=== PATIENT | female | born 1960 | race Caucasian/White ===

== ENCOUNTER 2017-06-22 03:00 | Inpatient (IN) | payer MEDICAID ==
[~2017-06-22] VITALS: Ht 167.6 cm; Wt 74.8 kg
--- NOTE | 2017-06-22 03:06 | NUR ---
PT BIBA AND [place] [facility] BLS. TAKEN TO BED 3
[2017-06-22 03:09] VITALS: BP 137/81
--- NOTE | 2017-06-22 03:09 | NUR ---
PATIENT BIBA W/C/O NECK PAIN. PT FOUND BY TARA MONTERROSO AMBULATING ON THE STREET. PATIENT AWAKE, ALERT, AMBULATORY. TARA MONTERROSO ON BEDSIDE . PT STATES HER NECK HURTS BUT DENIES ANY INJURIES . ETOH, DENIES N/V/D; SKIN IS PINK/WARM/DRY; AAOX4 WITH EVEN AND STEADY GAIT; LUNGS CLEAR BL; HR EVEN AND REGULAR; PT DENIES ANY FEVER, CP, SOB, OR COUGH AT THIS TIME; PATIENT STATES PAIN OF 10/10 AT THIS TIME; VSS; PATIENT POSITIONED FOR COMFORT; HOB ELEVATED; BEDRAILS UP X2; BED DOWN.PLACE ON 5150 BY TARA MONTERROSO D/T GRAVELY DISABLE. AMARA RIVERA MADE AWARE OF PT STATUS.
--- NOTE | 2017-06-22 03:19 | NUR ---
LAB AT BEDSIDE
--- NOTE | 2017-06-22 03:20 | NUR ---
PT AMB WITH ASST TO [facility]. UA SENT TO LAB.
--- NOTE | 2017-06-22 03:29 | NUR ---
MC/PD AT BEDSIDE, PT PLACED ON A 5150 FOR GRAVELY DISABLED
--- NOTE | 2017-06-22 03:33 | NUR ---
XRAY AT BEDSIDE
--- NOTE | 2017-06-22 03:34 | NUR ---
Dr. Chaudhari evaluating patient at bedside.
[2017-06-22 03:38] LABS: HEMATOCRIT 30.7 % (36-48); HEMOGLOBIN 9.6 g/dL (12.0-16.0); MEAN CORPUSCULAR HEMOGLOBIN 23 pg (27-31); MEAN CORPUSCULAR HGB CONC 31 g/dL (33-37); MEAN CORPUSCULAR VOLUME 74 fL (80-94); PLATELET COUNT (AUTO) 178 K/uL (140-450); RED BLOOD CELL COUNT(AUTO) 4.14 MIL/uL (4.20-5.40); RED CELL DISTRIBUTION WIDTH 21.3 % (11.6-13.7); WHITE BLOOD COUNT (AUTO) 5.6 K/uL (4.8-10.8)
[2017-06-22 03:38] LABS: AMPHETAMINE, URINE NEG. ng/ml (NEG <=1000); BARBITURATE, URINE NEG. ng/ml (NEG <=200); BENZODIAZEPINE, URINE NEG. ng/mL (NEG <=200); CANNABINOID, URINE NEG. ng/mL (NEG <=50); COCAINE, URINE NEG. ng/mL (NEG <=300); OPIATE, URINE NEG. ng/mL (NEG <=2000); PHENCYCLIDINE SCREEN,URINE NEG. ng/mL (NEG <=25)
[2017-06-22 03:39] LABS: ANION GAP 8.9 (8-16); CARBON DIOXIDE 30.9 mmol/L (21-32); CHLORIDE 108 mmol/L (98-107); CREATININE 0.6 mg/dL (0.6-1.3); GFR ARICAN-AMERICAN 132 mL/min (>90); GFR NON ARICAN-AMERICAN 109 mL/min (>90); GLUCOSE 92 mg/dL (74-106); POTASSIUM 3.8 mmol/L (3.5-5.1); SODIUM SERUM 144 mmol/L (136-145); UREA NITROGEN, BLOOD 6 mg/dL (7-18)
[2017-06-22 03:42] LABS: EOSINOPHILS % (MANUAL) 2 % (0-4); LYMPHOCYTES % (MANUAL) 30 % (20-46); MONOCYTES % (MANUAL) 10 % (5-12); NEUTROPHILS % (MANUAL) 58 (43-65)
[2017-06-22 03:43] LABS: ANISOCYTOSIS 1+
[2017-06-22 03:47] LABS: ALANINE AMINOTRANSFERASE 29 U/L (14-59); ALBUMIN 3.1 g/dL (3.4-5.0); ALCOHOL, BLOOD 210 mg/dL (<3); ALKALINE PHOSPHATASE 113 U/L (46-116); ASPARTATE AMINOTRANSFERASE 30 U/L (15-37); TOTAL BILIRUBIN 0.3 mg/dL (0.0-1.0)
[2017-06-22 03:52] LABS: ACETAMINOPHEN < 0.5 ug/ml (10-30); SALICYLATE < 2.8 mg/dL (2.8-20.0)
--- NOTE | 2017-06-22 04:04 | NUR ---
PT SLEEPING , ON PRODUCTION SUPPORT SUPERVISOR , VSS. WILL CONT TO MONITOR.
[2017-06-22] MEDS ORDERED: NACL 0.9% 1,000 ML IV ONE (04:05)
[2017-06-22] MEDS ORDERED: MULTIVITAMIN-12 10 ML, THIAMINE 100 MG, MAGNESIUM SULFATE 50% 2,000 MG, FOLIC ACID 5 MG... IV ONE ×5 (04:05)
[2017-06-22] MEDS ORDERED: MULTIVITAMIN-12 10 ML VIAL IV ONE (04:28)
[2017-06-22] MEDS ORDERED: MAGNESIUM SULFATE 50% 1000 MG/2 ML VIAL IV ONE (04:28)
[2017-06-22] MEDS ORDERED: THIAMINE 200 MG/2 ML VIAL ONE (04:28)
[2017-06-22] MEDS ORDERED: FOLIC ACID 5 MG/ML SYR ONE (04:28)
--- NOTE | 2017-06-22 05:04 | NUR ---
PT CONTINUES ASLEEP, VSS, CURRENTLY RECEIVING IV FLUIDS. NO S/S OF DISTRESS NOTED UP TO THIS POINT. WILL CONT TO MONITOR.
--- NOTE | 2017-06-22 06:05 | NUR ---
PT SLEEPING IN A COMFORTABLE POSITION, VS REMAIN STABLE, CONTINUES IN IV FLUIDS. NO DISTRESS NOTED AT THE MOMENT.
--- NOTE | 2017-06-22 07:15 | NUR ---
Pt report given to AUSTYN RIVERS. Transfer of care at this time.
--- NOTE | 2017-06-22 07:25 | NUR ---
PT SLEEPING BUT AROUSABLE;ALL MONITORS IN PLACED;NO ACUTE DISTRESS NOTED;WILL CONTINUE TO MONITOR PT.
--- NOTE | 2017-06-22 07:39 | NUR ---
PT WENT TO RESTROOM ACCOMPANIED BY CHARGE NURSE;PT STATES "I'M ON ONE ON ONE "I DON'T WANNA HURT MYSELF".WILL CONTINUE TO MONITOR PT.
--- NOTE | 2017-06-22 07:50 | NUR ---
PT EATING HER BREAKFAST;TALKING TO CHARGE NURSE CHYNA.
--- NOTE | 2017-06-22 08:19 | NUR ---
PT C/O ITCHINESS IN HER PRIVATE AREA;PER CHARGE NURSE SHE WAS DX WITH CHLAMYDIA AND PT DIDN'T TOOK HER MEDICINE; DR RENE NOTIFIED;
--- NOTE | 2017-06-22 09:02 | NUR ---
PT SLEEPING;ALL MONITORS IN PLACED;DARI MACARIO DISTRESS NOTED;WILL CONTINUE TO MONITOR PT.
--- NOTE | 2017-06-22 09:43 | NUR ---
PER TOÑITO NURSE PT IS MEDICALLY CLEARED;EMT MONITOR CALLED DR SHERIDAN.
--- NOTE | 2017-06-22 10:00 | NUR ---
PT C/O OF ITCHING AND NECK PAIN;ER MD NOTIFIED.
[2017-06-22] MEDS ORDERED: KETOROLAC 30 MG/ML VIAL IVP ONE (10:15)
--- NOTE | 2017-06-22 10:21 | NUR ---
PT REMOVED ALL THE MONITORS;PT STATES IT ANNOYS ME;PT BECOMES AGITATED;
--- NOTE | 2017-06-22 10:25 | NUR ---
PT REFUSES TO TAKE HER VS.WILL CONTINUE TO MONITOR PT.
--- NOTE | 2017-06-22 10:55 | NUR ---
pt keeps talking and laughing;no acut distress noted;will continue to monitor pt.
[2017-06-22] MEDS ORDERED: ONDANSETRON 4 MG/2 ML VIAL IVP PRN (11:05)
[2017-06-22] MEDS ORDERED: ACETAMINOPHEN 325 MG TAB PO PRN (11:05)
[2017-06-22] MEDS ORDERED: LORazepam 2 MG/ML VIAL IVP PRN (11:10)
--- NOTE | 2017-06-22 11:21 | NUR ---
junior technical writer at bedside for CXR.
--- NOTE | 2017-06-22 11:23 | NUR ---
XRAY AT BEDSIDE.
--- NOTE | 2017-06-22 11:42 | NUR ---
Patient will be admitted to care of DR SHERIDAN; Admited to TELE. Will go to room 119 B. Belongings list completed. Report to AUSTYN CUBA.
[2017-06-22 11:58] LABS: PROTHROMBIN TIME 9.7 secs (10.8-13.4)
--- NOTE | 2017-06-22 11:58 | NUR ---
RECEIVED REPORT FROM SILVESTRE IN ER. PATIENT AWAKE AND ALERT, NO SIGNS OF ACUTE DISTRESS. BOWEL SOUNDS ACTIVE IN ALL 4 QUADRANTS. BOWEL AND BLADDER CONTINENCE. SKIN INTACT. AMBULATORY WITH [facility]. PATIENT DENIES PAIN AT THIS TIME. PATIENT VITAL SIGNS ARE BLOOD PRESSURE 157/92, PULSE 81, OXYGEN SATURATION 100%, RESPIRATIONS 18 AND TEMPERATURE 98.1. ORIENTED TO HOSPITAL AND TO UNIT, PATIENT VERBALIZES UNDERSTANDING. 1:[address] BED IN LOW POSITION WITH BILATERAL HALF SIDE RAILS UP, ENVIRONMENTAL SAFETY CHECKS IN PLACE. WILL CONTINUE TO MONITOR.
[2017-06-22 12:00] VITALS: BP 154/92
[2017-06-22 12:08] LABS: CHOL/HDL RATIO 1.6 (1-4.5); FREE T4 (FREE THYROXINE) 0.95 ng/dL (0.76-1.46); MAGNESIUM 2.2 mg/dL (1.8-2.4); PHOSPHORUS 3.8 mg/dL (2.5-4.9); THYROID STIMULATING HORMONE 1.1 uIU/mL (0.34-3.74)
[2017-06-22] MEDS: QUEtiapine FUMARATE 25 MG TAB PO SCH ×3 (12:30→21:00)
--- NOTE | 2017-06-22 13:00 | NUR ---
INFORMED DR HUMPHRIES OF PATIENT BLOOD PRESSURE OF 157/92 AND PULSE 81. NO NEW ORDERS AT THIS TIME.
[2017-06-22] MEDS: LORazepam 1 MG TAB PO SCH ×2 (13:31→21:00)
[2017-06-22] MEDS ORDERED: LISINOPRIL 10 MG TAB PO SCH (13:53)
--- NOTE | 2017-06-22 14:57 | NUR ---
RECEIVED NEW ORDERS FROM DR ENGLISH, NOTED, WILL CARRY OUT.
[2017-06-22] MEDS: NACL 0.9% 1,000 ML IV SCH (15:14)
--- NOTE | 2017-06-22 15:17 | NUR ---
RECEIVED NEW ORDERS FROM DR ENGLISH, NOTED, WILL CARRY OUT.
[2017-06-22] MEDS ORDERED: AZITHROMYCIN 250 MG TAB PO SCH (15:30)
[2017-06-22 16:00] VITALS: BP 134/83
--- NOTE | 2017-06-22 16:44 | NUR ---
RECEIVED NEW ORDERS FOR FERRLECIT, NOTED, WILL CARRY OUT.
[2017-06-22] MEDS ORDERED: FERRIC GLUCONATE 125 MG in NACL 0.9% 100 ML IV SCH (17:00)
--- NOTE | 2017-06-22 17:34 | NUR ---
PATIENT AWAKE AND ALERT, NO SIGNS OF ACUTE DISTRESS. COMPLAINING OF PAIN 7/10 ALL OVER HER BODY AND ITCHING. NOTIFIED DR HUMPHRIES, WILL WAIT FOR NEW ORDERS.
[2017-06-22] MEDS ORDERED: diphenhydrAMINE 50 MG/ML VIAL IVP PRN (17:35)
[2017-06-22] MEDS: KETOROLAC 30 MG/ML VIAL IVP PRN (17:55)
--- NOTE | 2017-06-22 18:30 | NUR ---
PT SLEEPING, NO SIGNS OF ACUTE DISTRESS. FERRLECIT INFUSING. SAFETY CHECKS IN PLACE. WILL CONTINUE TO MONITOR.
[2017-06-22 18:38] LABS: APPEARANCE,URINE HAZY (CLEAR); BILIRUBIN,URINE NEGATIVE (NEGATIVE); BLOOD, URINE NEGATIVE (NEGATIVE); COLOR,URINE YELLOW (YELLOW); LEUKOCYTE ESTERASE ,URINE 3+ (NEGATIVE); NITRITE, URINE NEGATIVE (NEGATIVE); PROTEIN,URINE NEGATIVE (NEGATIVE); UGLUCOSE NEGATIVE (NEGATIVE); UROBILINOGEN,URINE 0.2 EU/dL (0.2 - 1)
[2017-06-22 18:48] LABS: RBC,URINE NONE SEEN /HPF (0-5)
[2017-06-22 18:49] LABS: BACTERIA,URINE FEW /HPF (None Seen); SQUAMOUS EPITHELIAL CELL,UR 4-10 (MOD) /LPF (0-3 (FEW)); URINE AMORPHOUS PHOSPHATES 2+ /HPF (None Seen)
--- NOTE | 2017-06-22 19:40 | NUR ---
PT AWAKE AND ALERT, NO SIGNS OF ACUTE DISTRESS. ENDORSED TO INSURANCE ADJUSTER NURSE FOR CONTINUITY OF CARE.
--- NOTE | 2017-06-22 19:42 | NUR ---
RECEIVED PT FROM ROSA ELENA ZAMAN PT IS AAOX4 AMBULATORY IV ON LEFT AC INFUSING FERRECIT NOT DISTRESS NOTED ON TELEMETRY SR
[2017-06-22 20:00] VITALS: BP 134/83
[2017-06-22] MEDS: DOCUSATE SODIUM 100 MG GELCAP PO SCH (20:59)
[2017-06-22] MEDS: PANTOPRAZOLE 40 MG TABEC PO SCH (21:01)
--- NOTE | 2017-06-22 22:00 | NUR ---
PT IS ASSISTED TO THE RESTROOM VOIDING WELL NOT DISTRESS NOTED ON TELEMETRY SR
[2017-06-23] VITALS: BP 133/73
--- NOTE | 2017-06-23 00:17 | NUR ---
PT SLEEPING WELL ON TELEMETRY SR
[2017-06-23] MEDS: NACL 0.9% 1,000 ML IV SCH (02:45)
[2017-06-23 04:00] VITALS: BP 135/81
--- NOTE | 2017-06-23 04:02 | NUR ---
SPONGE BATN GIVEN , LINEN CHANGED ON TELEMETRY SR NOT DISTRESS NOTED
[2017-06-23] MEDS: LORazepam 1 MG TAB PO SCH ×2 (04:44→12:35)
[2017-06-23] MEDS: KETOROLAC 30 MG/ML VIAL IVP PRN (04:50)
--- NOTE | 2017-06-23 04:59 | NUR ---
PT IS ASSISTED TO THE RESTROOM VOIDING WELL WILL BE MONITORIN PAIN MEDIC GIVEN ORDER ON TELE SR
[2017-06-23 05:43] LABS: EOSINOPHILS # (AUTO) 0.1 K/uL (0-0.4); EOSINOPHILS % (AUTO) 3.1 % (0.0-4.0); HEMATOCRIT 28.3 % (36-48); HEMOGLOBIN 8.8 g/dL (12.0-16.0); LYMPHOCYTES # (AUTO) 0.7 K/uL (2.5-16.5); LYMPHOCYTES % (AUTO) 16.3 % (20.5-51.1); MEAN CORPUSCULAR HEMOGLOBIN 23 pg (27-31); MEAN CORPUSCULAR HGB CONC 31 g/dL (33-37); MEAN CORPUSCULAR VOLUME 73 fL (80-94); MONOCYTES # (AUTO) 0.5 K/uL (0.8-1.0); MONOCYTES % (AUTO) 12.1 % (1.7-9.3); NEUTROPHILS % (AUTO) 67.5 % (42.2-75.2); PLATELET COUNT (AUTO) 146 K/uL (140-450); RED BLOOD CELL COUNT(AUTO) 3.85 MIL/uL (4.20-5.40); RED CELL DISTRIBUTION WIDTH 21.1 % (11.6-13.7)
--- NOTE | 2017-06-23 06:05 | NUR ---
PT REMAIN STABLE AFTER PAIN MEDIC GIVEN ON TELE SR
[2017-06-23 06:30] LABS: ANION GAP 9.5 (8-16); CALCIUM 7.8 mg/dL (8.5-10.1); CREATININE 0.5 mg/dL (0.6-1.3); POTASSIUM 3.5 mmol/L (3.5-5.1)
[2017-06-23 06:32] LABS: WHITE BLOOD COUNT (AUTO) 4.4 K/uL (4.8-10.8)
[2017-06-23 06:37] LABS: MAGNESIUM 1.7 mg/dL (1.8-2.4); PHOSPHORUS 3.6 mg/dL (2.5-4.9)
--- NOTE | 2017-06-23 08:00 | NUR ---
RECEIVED REPORT FROM ANDREA ZAMAN FOR CONTINUITY OF CARE. PATIENT AWAKE A/OX4 ,NO S/S OF RESP DISTRESS NOTED. DENIES ANY PAIN ,ABLE TO MAKE NEEDS KNOWN. IV SITE LEFT AND GAUGE 20 INTACT AND PATIENT. IVF INFUSING WELL. PLAN OF CARE DISCUSSED WITH THE PATIENT VITALS STABLE WILL CONTINUE TO MONITOR.
--- NOTE | 2017-06-23 08:00 | NUR ---
PATIENT HAS BEEN SCREENED AND CATEGORIZED LOW NUTRITION RISK. PATIENT WILL BE SEEN WITHIN 7 DAYS OF ADMISSION. 06/28/[address]
[2017-06-23 08:16] VITALS: BP 135/80
[2017-06-23] MEDS: DOCUSATE SODIUM 100 MG GELCAP PO SCH (08:37)
[2017-06-23] MEDS: PANTOPRAZOLE 40 MG TABEC PO SCH (08:37)
[2017-06-23] MEDS: QUEtiapine FUMARATE 25 MG TAB PO SCH (08:38)
[2017-06-23] MEDS ORDERED: FLUCONAZOLE 100 MG TAB PO SCH (08:48)
[2017-06-23] MEDS ORDERED: MULTIVITAMIN 1 TAB PO SCH (09:00)
[2017-06-23] MEDS ORDERED: THIAMINE 100 MG TAB PO SCH (09:00)
[2017-06-23] MEDS ORDERED: FOLIC ACID 1 MG TAB PO SCH (09:00)
[2017-06-23] MEDS ORDERED: LISINOPRIL 10 MG TAB PO SCH (09:00)
--- NOTE | 2017-06-23 09:00 | NUR ---
AMBULATE TO BATHROOM , NO WEAKNESS NOTED ,SELF MORNING CARE DONE ,TOLERATED WELL. DUE MEDS GIVEN ,REFUSED TO TAKE SEROQUEL NOTIFIED MD, WILL OBSERVE PATIENT.
[2017-06-23 09:07] LABS: TRANSFERRIN 362 mg/dL (200-370)
--- NOTE | 2017-06-23 10:00 | NUR ---
AMBULATE TO BATHROOM NO WEAKNESS NOTED ,DENIES ANY PAIN STABLE CONDITION AT THIS TIME.
[2017-06-23 10:24] LABS: FERRITIN 10 ng/mL (15-150)
--- NOTE | 2017-06-23 11:30 | NUR ---
CALLED [facility], [facility], AT [phone] AND SPOKE WITH PATRICIA. SHE SAID THE PATIENT IS OUT OF AREA AND TO CALL [facility]. IF PATIENT NEEDS DME, CALL HER. CALLED [facility] AND SPOKE WITH ROSIBEL . SHE SAID THE CM IS JAMESON [phone]. I CALLED JAMESON AND SHE SAID TO FAX REVIEW TO HER AT [phone]. INITIAL REVIEW FAXED TO JAMSEON.
[2017-06-23 12:00] VITALS: BP 142/82
--- NOTE | 2017-06-23 12:00 | NUR ---
CALM AND QUITE COOPERATIVE VITALS STABLE AT THIS TIME
[2017-06-23] MEDS ORDERED: PANT40EC28 PO (13:48)
[2017-06-23] MEDS ORDERED: QUET25TA46 PO (13:48)
[2017-06-23] MEDS ORDERED: LISI10TA11 PO (13:48)
[2017-06-23] MEDS ORDERED: QUET300T1 PO (14:17)
--- NOTE | 2017-06-23 15:00 | NUR ---
DISCHARGE INSTRUCTION AND PRESCRIPTION GIVEN , [facility] SPINNING AND WINDING SUPERVISOR PROVIDE THE [facility] ADDRESS AND PHONE NUMBER VERBALIZED UNDERSTANDING , D/C PATIENT WITH BUS PASS STABLE CONDITION UPON DISCHARGE.
== END 2017-06-23 15:05 | disposition home or self-care (01) | DRG 775 ==
LOC: MED 03:00 → MTU 11:06 → MED 11:50
PROVIDERS: ADMIT Family Medicine; ATTEND Family Medicine
DX: F10.129 Alcohol abuse with intoxication, unspecified (principal); G92 Toxic encephalopathy; E44.0 Moderate protein-calorie malnutrition; E88.09 Other disorders of plasma-protein metabolism, not elsewhere classified; F15.10 Other stimulant abuse, uncomplicated; A74.9 Chlamydial infection, unspecified; B37.3 Candidiasis of vulva and vagina; D50.9 Iron deficiency anemia, unspecified; F31.9 Bipolar disorder, unspecified; Y90.4 Blood alcohol level of 80-99 mg/100 ml; K21.9 Gastro-esophageal reflux disease without esophagitis; F12.10 Cannabis abuse, uncomplicated; F41.9 Anxiety disorder, unspecified; Z98.84 Bariatric surgery status; Z88.5 Allergy status to narcotic agent; Z91.041 Radiographic dye allergy status; Z91.14 Patient's other noncompliance with medication regimen; Z87.11 Personal history of peptic ulcer disease
CPT/HCPCS: 36415; 71010; 72040; 80048; 80053; 80305; 81001; 81025; 82150; 82728; 83036; 83540; 83690; 83735; 83880; 84100; 84439; 84443; 85025; 85045; 85610; 85730; 87081; 87086; 93005; 96365; 96366; 96375; 99285; A9153; G0480; G0482; J1200; J1885; J2916; J3411; J3475; J3490; J7030; Q0092